=== PATIENT | male | born 1980 | race Caucasian/White ===

== ENCOUNTER 2020-07-17 16:00 | Emergency (ER) | payer OTHER ==
[~2020-07-17 16:00] MED LIST: ACETAMINOPHEN500 M1 PO; AUGMENTIN 875-1 EACH PO; COLACE100 MG PO; NORCO 5/3251 EACH PO; OXY-IR 5MG5 MG PO; ZOFRAN8 MG PO
== END 2020-07-17 18:05 | disposition home or self-care (01) ==
LOC: FER 16:00
DX: S01.81XA Laceration without foreign body of other part of head, initial encounter (principal); W01.198A Fall on same level from slipping, tripping and stumbling with subsequent striking against other object, initial encounter; Y92.830 Public park as the place of occurrence of the external cause; Z23 Encounter for immunization
CPT/HCPCS: 90471; 90715